=== PATIENT | female | born 2000 | race Caucasian/White ===

== ENCOUNTER 2021-05-17 04:56 | Inpatient (IN) | payer BC, OTHER ==
[~2021-05-17] VITALS: Ht 160 cm; Wt 108.9 kg
--- NOTE | 2021-05-17 12:59 | PR ---
[facility] [address] [facility] [place] [address] Signed Progress Notes IP Datetime Report Generated by CPN: 05/17/2021 12:59 PROGRESS NOTES: [id number] Impression: Reassuring Heart Rate Plan: Continue Present Management VITAL SIGNS: [id number] Vital Signs: Reviewed; Within Normal Limits EXAM: [id number] Dilatation: 6.0 Effacement: 90 Station: 0 Contractions: irregular MEMBRANES: [id number] FETUS A: [id number] FHR Baseline: 125 Variability: Moderate 6-25bpm Accelerations: 15X15 Decelerations: None FHR Category: Category I Presentation: Vertex FETUS B: [id number] Signing Physician: Lanette Edmonds DO Copies: ~ *Electronically Signed* 05/17/21 1259 LANETTE EDMONDS DO PATIENT NAME: FRANSICO CASTORENA PROGRESS NOTE DATE OF : 98 PHYSICIAN: LANETTE EDMONDS DO RPT #: [id number] REPORT IS CONFIDENTIAL AND NOT TO BE RELEASED WITHOUT AUTHORIZATION
--- NOTE | 2021-05-18 09:16 | PR ---
[facility] [address] [place], [place] [address] Signed PP Progress Notes Datetime Report Generated by CPAngela: 05/18/2021 09:16 SUBJECTIVE: [id number] Pain: Within Normal Limits Nausea/Vomiting: Denies Flatus: No Bowel Movement: No Vital Signs: [id number] Vital Signs: Reviewed; Within Normal Limits Cardiovascular: Normal Respiratory: Normal Abdomen/Uterus: Normal Lochia: Normal Vulva/Perineum: Normal Extremities: Abnormal Incision: Not Applicable Progress: Not Applicable IMPRESSION/PLAN/PROCEDURES: [id number] Impression: Normal Progression Plan: Discharge Procedures: Rhogam Other Procedures: [facility] at [facility] Progress Notes: PPD#1 s/p -baby transferred to [facility] last night after delivery, currently doing well on room air per FOB -pt requesting DC LYDIA -baby A+ blood type, rhogam workup pending and blood bank delayed. Pt will receive rhogam 1 dose from [facility], then we will coordinate additional doses if needed. Pain well controlled with orals/topical treatments DC to home today, Bleeding and PreE precautions reviewed. Follow-up in 2 weeks and 6 weeks, more frequently if needed. Signing Physician: Lanette Edmonds DO *Electronically Signed* 05/18/21915 LANETTE EDMONDS DO PATIENT NAME: FRANSICO CASTORENA PROGRESS NOTE DATE OF : 98 PHYSICIAN: LANETTE EDMONDS DO RPT #: [id number] REPORT IS CONFIDENTIAL AND NOT TO BE RELEASED WITHOUT AUTHORIZATION [facility] [address] [place], [place] [address] Signed Copies: ~ *Electronically Signed* 05/18/21 0916 LANETTE EDMONDS DO PATIENT NAME: FRANSICO CASTORENA PROGRESS NOTE DATE OF : 98 PHYSICIAN: LANETTE EDMONDS DO RPT #: [id number] REPORT IS CONFIDENTIAL AND NOT TO BE RELEASED WITHOUT AUTHORIZATION
== END 2021-05-18 09:45 | disposition home or self-care (01) | DRG 807 ==
LOC: FBC 04:56
PROVIDERS: ADMIT Obstetrics & Gynecology; ATTEND Obstetrics & Gynecology
PROC: 10E0XZZ Delivery of Products of Conception, External Approach (ICD-10-PCS; principal; 2021-05-17)
PROC: 0UQMXZZ Repair Vulva, External Approach (ICD-10-PCS; 2021-05-17)
PROC: 10907ZC Drainage of Amniotic Fluid, Therapeutic from Products of Conception, Via Natural or Artificial Opening (ICD-10-PCS; 2021-05-17)
PROC: 00HU33Z Insertion of Infusion Device into Spinal Canal, Percutaneous Approach (ICD-10-PCS; 2021-05-17)
PROC: 3E0R3BZ Introduction of Anesthetic Agent into Spinal Canal, Percutaneous Approach (ICD-10-PCS; 2021-05-17)
DX: O71.82 Other specified trauma to perineum and vulva (principal); Z37.0 Single live birth; Z3A.39 39 weeks gestation of pregnancy; Z86.19 Personal history of other infectious and parasitic diseases
CPT/HCPCS: 01960; 36415; 82803; 83030; 85027; 86850; 86900; 86901; J1100; J2001; J2370; J2405; J2590; J2704; J2790; J2795; J3010

== ENCOUNTER 2022-01-22 15:47 | Emergency (ER) | payer OTHER ==
[~2022-01-22] VITALS: Ht 152.4 cm; Wt 108.9 kg
== END 2022-01-22 17:50 | disposition home or self-care (01) ==
LOC: ED 15:47
DX: S63.91XA Sprain of unspecified part of right wrist and hand, initial encounter (principal); W00.0XXA Fall on same level due to ice and snow, initial encounter
CPT/HCPCS: 73110; 99283-25

== ENCOUNTER 2025-05-29 21:39 | Inpatient (IN) | payer OTHER ==
[~2025-05-29] VITALS: Ht 160 cm; Wt 113.4 kg
[2025-05-29] MEDS ORDERED: LACTATED RINGER'S 1,000 ML IV PRN (23:30)
[2025-05-29] MEDS ORDERED: MAGNESIUM HYDROXIDE/AL HYDROX 30 ML CUP PO PRN (23:30)
[2025-05-29] MEDS ORDERED: LACTATED RINGER'S 1,000 ML IV SCH (23:30)
[2025-05-29] MEDS ORDERED: OXYTOCIN/0.9 % SODIUM CHLORIDE 30 UNITS/500 ML BAG IV SCH (23:30)
[2025-05-29] MEDS ORDERED: CALCIUM CARBONATE 500 MG CHEW PO PRN (23:30)
[2025-05-29 23:35] LABS: MCH 29.8 PG (25.6-32.2); MCHC 32.9 g/dL (32.2-35.5); MCV 90.6 fL (79.4-94.8); RBC 4.03 M/uL (3.93-5.22)
[2025-05-29] MEDS ORDERED: LIDOCAINE HCL 1% 30 ML SDV ONE (23:52)
[2025-05-29] MEDS ORDERED: SOD+POT BICARB/CITRIC ACID 2 EA TABLET.EFF ONE (23:52)
[2025-05-29] MEDS ORDERED: TERBUTALINE SULFATE 1 MG/ML AMP ONE (23:52)
[2025-05-30] MEDS ORDERED: LACTATED RINGER'S 500 ML IV PRN
[2025-05-30] MEDS ORDERED: ROPIVACAINE 0.2% 200 ML BAG ONE (00:05)
[2025-05-30] MEDS ORDERED: fentaNYL citrate 100 MCG/2 ML VIAL ONE ×2 (00:06→03:47)
[2025-05-30] MEDS ORDERED: BUPIVACAINE HCL 0.25% 50 ML MDV ONE (00:08)
[2025-05-30] MEDS ORDERED: BUPIVACAINE HCL 0.25% 10 ML SDV INJ ONE ×2 (00:12→03:47)
[2025-05-30 00:32] LABS: ABO AB; RH NEGATIVE
[2025-05-30 00:33] LABS: ANTIBODY SCREEN POSITIVE
[2025-05-30 02:29] LABS: ANTIBODY IDENTIFICATION anti-D
[2025-05-30] MEDS ORDERED: ePHEDrine KIT FOR FBC IV ONE (05:14)
[2025-05-30] MEDS ORDERED: ePHEDrine sulfate 5 MG/ML SYRINGE IV PRN (05:15)
[2025-05-30] MEDS ORDERED: LACTATED RINGER'S 2,000 ML IV ONE (05:15)
[2025-05-30 05:57] VITALS: BP 119/55
[2025-05-30] MEDS ORDERED: OXYTOCIN/0.9 % SODIUM CHLORIDE 500 ML IV SCH (09:00)
[2025-05-30] MEDS ORDERED: HYDROCODONE/ACETA 5/325 TAB PO PRN (09:00)
[2025-05-30] MEDS ORDERED: BENZOCAINE 60 ML AEROSOL TOP PRN (09:00)
[2025-05-30] MEDS ORDERED: HYDROCORTISONE ACETATE 25 MG SUPP PR PRN (09:00)
[2025-05-30] MEDS ORDERED: CALCIUM CARBONATE 500 MG CHEW PO PRN (09:00)
[2025-05-30] MEDS ORDERED: SENNOSIDES/DOCUSATE 1 EA TAB PO SCH (09:00)
[2025-05-30] MEDS ORDERED: MAGNESIUM HYDROXIDE/AL HYDROX 30 ML CUP PO PRN (09:00)
[2025-05-30] MEDS ORDERED: MAGNESIUM HYDROXIDE 30 ML UDC PO PRN (09:00)
[2025-05-30] MEDS ORDERED: WITCH HAZEL/GLYCERIN 1 EA PAD TOP PRN (09:00)
[2025-05-30 09:05] LABS: AMPHETAMINES, URINE NEGATIVE (NEGATIVE); BARBITURATES, URINE NEGATIVE (NEGATIVE); BENZODIAZEPINE, URINE NEGATIVE (NEGATIVE); CANNABINOID, URINE NEGATIVE (NEGATIVE); COCAINE, URINE NEGATIVE (NEGATIVE); ECSTASY, URINE NEGATIVE (NEGATIVE); FENTANYL, URINE POSITIVE (NEGATIVE); METHADONE, URINE NEGATIVE (NEGATIVE); OPIATES, URINE NEGATIVE (NEGATIVE); OXYCODONE, URINE NEGATIVE (NEGATIVE); PHENCYCLIDINE, URINE NEGATIVE (NEGATIVE)
[2025-05-30] MEDS ORDERED: ACETAMINOPHEN 325 MG TAB PO ONE (10:30)
[2025-05-30] MEDS ORDERED: IBUPROFEN 600 MG TAB PO ONE (10:45)
[2025-05-30] MEDS ORDERED: IBLOOD GLUCOSE TEST STRIP 1 EA TEST VI SCH (13:00)
[2025-05-30] MEDS ORDERED: IBUPROFEN 600 MG TAB PO SCH (14:00)
[2025-05-30] MEDS ORDERED: ACETAMINOPHEN 325 MG TAB PO SCH (14:00)
[2025-05-30] MEDS ORDERED: KETOROLAC TROMETHAMINE 30 MG/ML VIAL IV SCH (15:00)
[2025-05-31] MEDS ORDERED: IBLOOD GLUCOSE TEST STRIP 1 EA TEST VI SCH (06:00)
[2025-05-31] MEDS ORDERED: CYCLOBENZAPRINE HCL 10 MG TAB PO PRN (06:45)
[2025-05-31 06:59] LABS: ABO AB; ANTIBODY SCREEN NEGATIVE; RH NEGATIVE
[2025-05-31 07:03] LABS: FETAL HEMOGLOBIN SCREEN NEGATIVE; RHIG DOSE 1; RHIG STATUS CANDIDATE
--- NOTE | 2025-05-31 11:03 | PR ---
[facility] [address] [place], [place] [address] Signed PP Progress Notes Datetime Report Generated by CPN: 05/31/2025 11:03 SUBJECTIVE: [id number] Pain: Within Normal Limits Nausea/Vomiting: Denies Flatus: Yes Bowel Movement: No Vital Signs: [id number] Vital Signs: Reviewed; Within Normal Limits Cardiovascular: Normal Respiratory: Normal Abdomen/Uterus: Normal Lochia: Normal Vulva/Perineum: Not Done Breasts: Not Done CVA Tenderness: Normal Extremities: Normal Incision: Not Applicable Progress: Normal Exam Comments: Fundus firm U-2 nontender IMPRESSION/PLAN/PROCEDURES: [id number] Impression: Normal Progression Plan: Discharge Progress Notes: Pt seen and examined. Doing well. Ambulating, voiding, and tolerating full diet. Pain and lochia minimal. Shoulder / neck pain most likely from positioning during extended attempts at epidural improved w/ cyclobenzaprine. well. No other concerns. Desires d/c home today. Reviewed d/c instructions and medications. Planning vasectomy for pp contraception. All questions answered. Discuss importance of glucose tolerance testing. Signing Physician: Lisa Zavala DO Copies: ~ *Electronically Signed* 05/31/25 5649 LISA ZAVALA (MASHA) DO PATIENT NAME: FRANSICO OCONNELL PROGRESS NOTE DATE OF : 98 PHYSICIAN: LISA ZAVALA) DO RPT #: [id number] REPORT IS CONFIDENTIAL AND NOT TO BE RELEASED WITHOUT AUTHORIZATION
[2025-05-31] MEDS ORDERED: IBUPROFEN 600 MG TAB PO SCH (22:00)
== END 2025-05-31 14:00 | disposition home or self-care (01) | DRG 807 ==
LOC: FBCO 21:39 → FBC 23:08
PROVIDERS: Obstetrics & Gynecology; ADMIT Obstetrics & Gynecology; ATTEND Obstetrics & Gynecology
PROC: 4A1HXCZ Monitoring of Products of Conception, Cardiac Rate, External Approach (ICD-10-PCS; 2025-05-29)
PROC: 10E0XZZ Delivery of Products of Conception, External Approach (ICD-10-PCS; principal; 2025-05-30)
PROC: 10907ZC Drainage of Amniotic Fluid, Therapeutic from Products of Conception, Via Natural or Artificial Opening (ICD-10-PCS; 2025-05-30)
DX: O24.424 Gestational diabetes mellitus in childbirth, insulin controlled (principal); Z37.0 Single live birth; Z3A.37 37 weeks gestation of pregnancy; M99.01 Segmental and somatic dysfunction of cervical region; O99.892 Other specified diseases and conditions complicating childbirth
CPT/HCPCS: 36415; 80307; 83030; 85027; 86850; 86870; 86900; 86901; A9270; J1885; J2790; J3010; J7121